=== PATIENT | female | born 1990 | race Caucasian/White ===

== ENCOUNTER → 2021-05-21 | Outpatient (CLI) | payer OTHER, SELFPAY ==
[2021-05-21 12:28] LABS: Insulin 16.7 mU/L (2.6-37.6)
[2021-05-21 12:36] LABS: ALB/GLOB Ratio 1.1 RATIO (0.9-2.4); AST(SGOT) 23 U/L (15-37); Alanine Aminotransfer ALT/SGPT 34 U/L (13-56); Albumin, Serum 3.8 g/dL (3.2-5.0); Alkaline Phosphatase 73 U/L (45-117); Anion Gap 4 (5-15); BUN 13 mg/dL (7-18); BUN/Creat Ratio 12.9 RATIO (10-20); Calcium,Total 8.9 mg/dL (8.5-10.1); Chloride 112 mmol/L (98-107); Cholesterol 140 mg/dL (200); Creatinine, Serum 1.01 mg/dL (0.55-1.02); EST Glomerular Filtration Rate 68 mL/min (>60); Est Glom Filt Rate - Afr Amer 82 mL/min (>60); Estradiol 47.2 pg/mL; Globulin 3.5 g/dL (2.2-4.2); Glucose 85 mg/dL (74-106); High Density Lipoprotein 43 mg/dL; Protein, Total 7.3 g/dL (6.4-8.2); Sodium Level 139 mmol/L (136-145); Thyroid Stim Hormone (TSH) 1.18 uIU/mL (0.358-3.74); Triglycerides 59 mg/dL; Very Low Density Lipoprotein 12 mg/dL (5-40)
[2021-05-24 12:08] LABS: Beef <0.10 kU/L (Class 0); Corn <0.10 kU/L (Class 0); Egg, Whole <0.10 kU/L (Class 0); Milk (Cow) <0.10 kU/L (Class 0); Peanut <0.10 kU/L (Class 0); Pork <0.10 kU/L (Class 0); Soybean <0.10 kU/L (Class 0); Wheat <0.10 kU/L (Class 0)
[2021-05-24 14:23] LABS: Chocolate <0.10 kU/L (Class 0)
[2021-05-25 10:09] LABS: Estrogen, Total, Serum 241 pg/mL (.)
== END | disposition home or self-care (01) ==
PROVIDERS: Visit Provider Family Medicine
DX: Z00.00 Encounter for general adult medical examination without abnormal findings (principal)
CPT/HCPCS: 36415; 80053; 80061; 82533; 82627; 82670; 82672; 83525; 84403; 84443; 86003; 86005; 82626

== ENCOUNTER 2021-07-17 11:30 | Outpatient (RCR) | payer OTHER, SELFPAY | END 2021-07-23 23:59 | LOC: NS 11:30 | PROVIDERS: PCP Family Medicine; Referring Provider Family Medicine; Visit Provider Family Medicine | DX: Z71.3 Dietary counseling and surveillance (principal); E66.01 Morbid (severe) obesity due to excess calories; E28.2 Polycystic ovarian syndrome; E88.81 Metabolic syndrome and other insulin resistance; K58.9 Irritable bowel syndrome, unspecified | CPT/HCPCS: 97802; 97803 ==

== ENCOUNTER 2021-08-06 11:37 | Outpatient (RCR) | payer OTHER, SELFPAY | END 2021-08-23 23:59 | LOC: NS 11:37 | PROVIDERS: PCP Family Medicine; Referring Provider Family Medicine; Visit Provider Family Medicine | DX: Z71.3 Dietary counseling and surveillance (principal); E66.01 Morbid (severe) obesity due to excess calories; E28.2 Polycystic ovarian syndrome; K58.9 Irritable bowel syndrome, unspecified; E88.81 Metabolic syndrome and other insulin resistance | CPT/HCPCS: 97803 ==

== ENCOUNTER 2021-08-28 07:29 | Outpatient (RCR) | payer OTHER, SELFPAY | END 2021-09-22 23:59 | LOC: NS 07:29 | PROVIDERS: PCP Family Medicine; Referring Provider Family Medicine; Visit Provider Family Medicine | DX: Z71.3 Dietary counseling and surveillance (principal); E66.01 Morbid (severe) obesity due to excess calories; E28.2 Polycystic ovarian syndrome; E88.81 Metabolic syndrome and other insulin resistance; K58.9 Irritable bowel syndrome, unspecified | CPT/HCPCS: 97803 ==